=== PATIENT | male | born 1955 ===

== ENCOUNTER 2025-03-21 07:58 | Outpatient (CLI) | payer OTHER | END 2025-03-21 08:06 | disposition home or self-care (01) | LOC: SONOGRAMA 07:58 | PROVIDERS: ATTEND Pathology Anatomic Pathology & Clinical Pathology | DX: R59.0 Localized enlarged lymph nodes (principal); C77.0 Secondary and unspecified malignant neoplasm of lymph nodes of head, face and neck ==